=== PATIENT | male | born 1975 | race Caucasian/White ===

== ENCOUNTER 2016-08-12 08:23 | Day surgery (SDC) | payer OTHER ==
[~2016-08-12 08:23] MED LIST: ACETAMINOPHEN 1000MG/100 ML PREMIX IV ONE; FAMOTIDINE 20MG TABLET PO ONE; MECLIZINE 25 MG TABLET PO ONE; METOCLOPRAMIDE 10 MG TABLET PO ONE; VANCOMYCIN HCL 1,000 MG in 0.9 % SODIUM CHLORIDE 250ML 250 ML IVPB ONE
[2016-08-12 08:46] LABS: GRAN % 48.8 % (47-80); HEMATOCRIT 47.1 % (42.0-52.0); HEMOGLOBIN 16.4 gm/dl (14.0-18.0); LYMPH % 38.5 % (16-45); MEAN CORPUSCULAR HEMOGLOBIN 32.7 pg (27-33); MEAN CORPUSCULAR HGB CONC 34.8 g/dl (32-36); MEAN PLATELET VOLUME 9.4 fl (7.4-10.4); MONO % 8.7 % (0-9); PLATELET COUNT 237 K/uL (130-400); RED BLOOD COUNT 5.01 M/uL (4.40-5.70); RED CELL DISTRIBUTION WIDTH 13.4 % (11.5-14.5); WHITE BLOOD COUNT W/O DIFF 9.1 K/uL (4.2-12.2)
[2016-08-12 08:56] LABS: ANION GAP 14.7 (7-16); BLOOD UREA NITROGEN 17 mg/dL (9-20); CARBON DIOXIDE 26.3 mmol/L (22-30); CREATININE 0.9 mg/dL (0.66-1.25); EST GLOMERULAR FILTRATION RATE > 60 ml/min; GLUCOSE,RANDOM 131 mg/dL (70-110)
[2016-08-12] MEDS ORDERED: SEVOFLURANE 250 ML INH ONE (15:37)
[2016-08-12] MEDS ORDERED: DEXAMETHASONE 4 MG/ML 1ML VIAL IVP ONE (15:37)
[2016-08-12] MEDS ORDERED: ROPIVACAINE HCL (NAROPIN) /PF 5MG/ML 20ML VIAL IV ONE (15:37)
[2016-08-12] MEDS ORDERED: LIDOCAINE 2% MDV (20MG/ML) 20ML VIAL IV ONE (15:37)
[2016-08-12] MEDS ORDERED: PROPOFOL 10 MG/ML VIAL IV ONE (15:37)
[2016-08-12] MEDS ORDERED: SUCCINYLCHOLINE 20 MG/ML 10ML IVP ONE (15:37)
[2016-08-12] MEDS ORDERED: KETOROLAC 30 MG/ML VIAL IVP ONE (15:37)
[2016-08-12] MEDS ORDERED: FENTANYL PF 100MCG/2ML VIAL IV ONE (15:37)
[2016-08-12] MEDS ORDERED: MIDAZOLAM HCL 2MG/2ML VIAL IV ONE (15:37)
[2016-08-12] MEDS ORDERED: ROCURONIUM BROMIDE 50MG/5ML VIAL IV ONE (15:37)
[2016-08-12] MEDS ORDERED: NEOSTIGMINE 1 MG/1 ML,10ML VIAL IV ONE (15:37)
[2016-08-12] MEDS ORDERED: ONDANSETRON HCL IV 4 MG/2 ML VIAL IVP ONE (15:37)
[2016-08-12] MEDS ORDERED: HYDROCODONE/APAP 7.5/325MG TABLET PO ONE (15:41)
[2016-08-12] MEDS ORDERED: EPINEPHRINE 1 MG/ML AMPUL SQ ONE (15:41)
--- NOTE | 2016-08-13 10:41 | Operative Note ---
DATE OF SURGERY: 08/12/2016. SURGEON: Cruz Ellis D.O. REFERRING PHYSICIAN: April Muniz P.A.-C. PREOPERATIVE DIAGNOSES: 1. TEAR OF THE LEFT ROTATOR CUFF. 2. IMPINGEMENT SYNDROME, LEFT SHOULDER. POSTOPERATIVE DIAGNOSES: 1. TEAR OF THE LEFT ROTATOR CUFF. 2. IMPINGEMENT SYNDROME, RIGHT SHOULDER. OPERATIVE PROCEDURES: 1. Arthroscopic repair of the left rotator cuff. 2. Arthroscopic subacromial decompression and acromioplasty of the left shoulder. DESCRIPTION OF PROCEDURE: This 41-year-old male was taken to the operating room and was placed in the supine position on the operating room table. A general anesthetic was administered. The patient was then placed in the beach chair position with all bony prominences well padded and well secured. The left shoulder was prepped with Hibiclens and draped in the usual sterile fashion. A posterior portal was established in the glenohumeral joint. Initial evaluation of the joint demonstrated a normal appearance of the glenohumeral ligaments and subscapularis. The biceps also appeared to be normal. No articular cartilage lesions were identified. The labrum also appeared to be normal. The patient did have a tear of the supraspinatus tendon. A marker suture was placed. The scope was then placed in the subacromial space. Thorough subacromial decompression and acromioplasty were performed. We then removed the marker suture and debrided the torn portion of the rotator cuff from the bursal surface down to the tuberosity. We then could easily visualize the tear and felt that this could be repaired using [employer] SpeedBridge technique. Subsequently we proceeded to place two 4.75 swivel-lock anchors adjacent to the articular cartilage with FiberTape and TigerTape, respectively. These were then passed through the rotator cuff. A single limb of each one of these sutures was then grasped and placed through a third swivel-lock anchor which was placed inferior to the anterior anchor. Traction was placed on the sutures and the anchor was impaled. The remaining two tails of suture were then grasped and placed into a fourth swivel-lock anchor which was placed inferior to the posterior anchor. Traction was placed on these, and subsequently the anchor was impaled and the sutures were cut. The repair appeared to be satisfactory, and the wound was irrigated and suctioned. The portals were closed with 4-0 nylon suture. An UltraSling was applied. The patient was taken to the recovery room in satisfactory condition. GROSS PATHOLOGY: This patient demonstrated a tear of the supraspinatus tendon of the left shoulder which was repaired utilizing [employer] SpeedBridge technique. Cruz Ellis D.O. Date Time Job Number: [id number] MTDD
== END 2016-08-12 13:45 | disposition home or self-care (01) ==
LOC: SUR 08:23
PROVIDERS: ATTEND Orthopaedic Surgery
DX: M75.122 Complete rotator cuff tear or rupture of left shoulder, not specified as traumatic (principal); M75.42 Impingement syndrome of left shoulder; E11.9 Type 2 diabetes mellitus without complications; Z79.84 Long term (current) use of oral hypoglycemic drugs; I10 Essential (primary) hypertension
CPT/HCPCS: 85025; 80048; 29826; 29827; 64415; 01630; J1885; J2405; J3370; J3010; J2795; 01992; J0171; J0330; J2710; J7050